=== PATIENT | female | born 1965 | race Two or more races ===

== ENCOUNTER 2020-09-14 22:25 | Emergency (ER) | payer OTHER ==
[~2020-09-14] VITALS: Ht 149.9 cm; Wt 70.0 kg
[2020-09-14] MEDS ORDERED: LISI1TAB20 PO (22:37)
[2020-09-14] MEDS ORDERED: AMLO-150 PO (22:37)
[2020-09-14] MEDS ORDERED: ATOR20TA37 PO (22:37)
[2020-09-14] MEDS ORDERED: METF500T17 PO (22:37)
--- NOTE | 2020-09-14 22:37 | NUR ---
at bedside, states that pt was on couch when she was noted to begin shaking, was unresponsive for about five minutes. reports that pt was complaining of being unable to see when she started to become more alert, was oriented. pt and state that this happened last week too but they didnt seek treatment at that time.
[2020-09-14] MEDS ORDERED: SODIUM CHLORIDE 0.9% 1,000ML IVBOLUS ONE (23:00)
[2020-09-14] MEDS ORDERED: SODIUM CHLORIDE FLUSH 10ML SYR IVF ONE (23:00)
[2020-09-14 23:05] LABS: BASOPHILS % (AUTO) 1 % (0-1); EOSINOPHILS % (AUTO) 3 % (1-7); LYMPHOCYTES % (AUTO) 35 % (22-44); MEAN CORPUSCULAR HEMOGLOBIN 30.1 pg (27.0-34.8); MEAN CORPUSCULAR HGB CONC 35.6 g/dL (32.4-35.8); MEAN PLATELET VOLUME 8.7 fL (7.4-10.4); MONOCYTES % (AUTO) 7 % (2-9); NEUTROPHILS % (AUTO) 55 % (42-75); PLATELET COUNT 286 x10^3/uL (130-400); RED BLOOD COUNT 4.19 x10^6/uL (3.82-5.3); RED CELL DISTRIBUTION WIDTH 12.4 % (9.6-15.2)
[2020-09-14 23:07] LABS: MD NO
[2020-09-14 23:09] LABS: ALBUMIN 3.7 g/dL (3.4-5.0); ANION GAP 9 mmol/L (5-15); CALCIUM 7.8 mg/dL (8.5-10.1); CHLORIDE 103 mmol/L (98-107); CREATININE 0.59 mg/dL (0.55-1.02)
--- NOTE | 2020-09-14 23:10 | NUR ---
pt up to bedside commode, voided 800ml of light yellow urine. pt returned safely to bed, states that headache is slightly better. pt on monitoring and evaluation advisor, satting well on room air, with bed rails up bilaterally and call light in hand. no signs or symptoms of acute distress noted respirations even and unlabored at bedside.
[2020-09-14 23:13] LABS: TROPONIN I 0.027 ng/mL (0.000-0.045)
[2020-09-14 23:54] LABS: MICROSCOPIC NOT IND
[2020-09-15] MEDS ORDERED: SODIUM CHLORIDE 0.9% 1,000ML IVBOLUS ONE
[2020-09-15] MEDS ORDERED: INSULIN LISPRO SINGLE DOSE, ER SQ-INSULIN ONE (00:48)
[2020-09-15 01:00] VITALS: BP 136/64
[2020-09-15] MEDS ORDERED: INSULIN SINGLE DOSE, ER SQ-INSULIN ONE (01:00)
[2020-09-15] MEDS ORDERED: INSULIN REGULAR 100 UNITS/ML, 3ML VIAL SQ-INSULIN ONE (01:00)
== END 2020-09-15 01:07 | disposition home or self-care (01) ==
LOC: ED 09-15 01:00
DX: R55 Syncope and collapse (principal); E11.65 Type 2 diabetes mellitus with hyperglycemia; R51.9 Headache, unspecified; R07.9 Chest pain, unspecified; I10 Essential (primary) hypertension
CPT/HCPCS: 36415; 70450; 71045; 80048; 81003; 82040; 82962; 84484; 85025; 93005; 96360; 96361; 99285; J7030